=== PATIENT | male | born 1940 | race Hispanic/Latino ===

== ENCOUNTER 2024-06-28 02:45 | Inpatient (IN) | payer OTHER ==
[2024-06-28 03:05] LABS: Actual Bicarbonate (HCO3a) 22.2 mEq/L (22-28); Analyzer IN Cardio ER; Base Excess (BEa) -1.5 mEq/L (-2.0 to +3.0); CO2 Tension 34.1 mmHg (35.0-45.0); Calcium, Ionized (arterial) 1.06 mmol/L (1.12-1.30); Carboxyhemoglobin (COHb) 0.6 gm% (0.0-3.0); Hematocrit-ABG 38 % (42.0-52.0); Hemoglobin (Hb) 12.9 g/dL (14.0-18.0); O2 Tension (PaO2), arterial 159.1 mmHg (> 60.0); Potassium - ABG Lab 3.64 mmol/L (3.70-5.30); pH, Arterial 7.431 (7.35-7.45)
[2024-06-28 03:07] LABS: ALV-art Gradient 511.275 mmHg (0-20); Puncture Site Right Radial artery
[2024-06-28 03:28] LABS: #Basophils Less than 0.03 10x3/uL (0.0-0.2); #Eosinophils Less than 0.03 10x3/uL (0.0-0.7); %Basophils 0.1 % (0.0-1.0); %Lymphocytes 3.6 % (21.0-51.0); %Monocytes 6.2 % (0.0-10.0); %Neutrophils 89.8 % (42.0-75.0); Hematocrit 36.8 % (42.0-52.0); Hemoglobin 12.3 g/dL (14.0-18.0); Mean Corpuscular HGB CONC 33.4 g/dL (32.0-36.0); Mean Corpuscular Hemoglobin 30.5 pg (27.0-31.0); Mean Corpuscular Volume 91.3 fL (78.0-98.0); Mean Platelet Volume 11.4 fL (7.4-10.4); Platelet Count 173 10x3/uL (130-400); RBC Distribution Width 12.4 % (11.5-14.5); Red Blood Cell (RBC) Count 4.03 mill/uL (4.70-6.10)
[2024-06-28 03:59] LABS: Troponin I 1.595 ng/mL (< 0.028)
[2024-06-28 04:00] LABS: ALT (SGPT) 11 U/L (8-55); AST (SGOT) 12 U/L (5-34); Albumin 2.9 g/dL (3.4-4.8); Alkaline Phosphatase 123 U/L (40-110); Anion Gap 15 mmol/L (10-20); BUN (Urea Nitrogen) 46 mg/dL (8.4-25.7); Bilirubin, Total 0.5 mg/dL (0.2-1.2); Calc. Creatinine Clearance 0 mL/min (70-130); Calcium 8.4 mg/dL (7.8-10.44); Carbon Dioxide 20 mmol/L (23-31); Chloride 103 mmol/L (98-107); Estimated GFR 15; Globulin 3.6 g/dL (2.4-3.5); Glucose 173 mg/dL (83-110); Potassium 3.6 mmol/L (3.5-5.1); Protein, Total 6.5 g/dL (5.8-8.1); Sodium 134 mmol/L (136-145)
[2024-06-28] MEDS ORDERED: Furosemide 40 MG (4 mL) VIAL ONE (04:30)
[2024-06-28] MEDS ORDERED: Heparin 5,000 UNITS/ML VIAL ONE (04:31)
[2024-06-28] MEDS ORDERED: Heparin 25,000 units/D5W 500 ML ONE (04:31)
[2024-06-28 04:48] LABS: INR-International Normal Ratio 1.1; Prothrombin Time 14.6 sec (12.0-14.7)
[2024-06-28] MEDS ORDERED: NOREPINEPHRINE 8 MG/250 ML-D5W 250 ML ONE (04:48)
[2024-06-28 04:49] LABS: PTT 33.6 sec (22.9-36.1)
[2024-06-28] MEDS ORDERED: NOREPINEPHRINE 8 MG/250 ML-D5W 250 ML IVPB PRN (05:53)
[2024-06-28] MEDS ORDERED: Glucagon 1 MG/ML KIT IM PRN (06:19)
[2024-06-28] MEDS ORDERED: Dextrose 5% in Water 1,000 ML IV PRN (06:19)
[2024-06-28] MEDS ORDERED: Dextrose 50% Abboject 50 ML SYRINGE SLOW IVP PRN (06:19)
[2024-06-28 06:55] LABS: Troponin I 2.711 ng/mL (< 0.028)
[2024-06-28 08:45] LABS: Hematocrit 35.6 % (42.0-52.0); Hemoglobin 12.1 g/dL (14.0-18.0); Platelet Count 165 10x3/uL (130-400)
[2024-06-28 09:15] LABS: PTT 126.9 sec (22.9-36.1)
[2024-06-28 09:27] LABS: Critical Call Chem Troponin I NUR.LG7; Troponin I 3.311 ng/mL (< 0.028)
[2024-06-28] MEDS ORDERED: Lactated Ringer's 1,000 ML IV SCH (10:00)
[2024-06-28] MEDS: Aspirin 81 mg Enteric Coated Tablet PO SCH ×2 (16:21→16:27)
[2024-06-28] MEDS: Pantoprazole 40 MG VIAL IVP SCH (16:22)
[2024-06-28] MEDS: Insulin Lispro 100 UNIT/ML 10 ML VIAL SC PRN (16:23)
[2024-06-28 16:51] LABS: Critical Call Chem Troponin I ICU.LHt; Troponin I 4.626 ng/mL (< 0.028)
[2024-06-28 17:06] LABS: Bacteria/HPF None Seen HPF (None Seen); Bilirubin Negative (Negative); Blood, Urine 1+ (Negative); CAUTI Indications for Culture Alt mental st,lethar; Clarity Clear (Clear); Glucose, Urine (Dipstick) 150 mg/dL (Negative); Ketone, Urine Negative (Negative); Leukocyte Negative Leu/uL (Negative); Nitrite Negative (Negative); Protein, Urine (Dipstick) 100 mg/dL (Neg-Trace); RBC/HPF 0-3 HPF (0-3); Specific Gravity, Urine 1.007 (1.002-1.036); Squamous Epithelial None Seen HPF (0-3); Urobilinogen Normal mg/dL (Less than 2); WBC/HPF 0-3 HPF (0-3)
[2024-06-28] MEDS: Insulin Regular, Human 100 UNIT/ML 10 ML VIAL SC SCH (17:08)
[2024-06-28 17:13] LABS: Amphetamine Not Detected (NotDetected); Barbiturates Screen Not Detected (NotDetected); Benzodiazepine Screen Not Detected (NotDetected); Cocaine Metabolite Screen Not Detected (NotDetected); Methadone Not Detected (NotDetected); Methamphetamine Not Detected (NotDetected); Opiate Screen Not Detected (NotDetected); Oxycodone Screen Not Detected (NotDetected); Phencyclidine (PCP) Not Detected (NotDetected); THC/Cannabinoid Screen Not Detected (NotDetected); Tricyclic Screen Not Detected (NotDetected)
[2024-06-28 17:17] LABS: Urine Culture Reflex No No
[2024-06-28 17:58] LABS: Creatinine, Urine 83.69 mg/dL (63-166)
[2024-06-28 18:24] LABS: Albumin 2.8 g/dL (3.4-4.8); Anion Gap 16 mmol/L (10-20); BUN (Urea Nitrogen) 49 mg/dL (8.4-25.7); BUN/Creatinine Ratio 12.47; Calc. Creatinine Clearance 16 mL/min (70-130); Calcium 8.3 mg/dL (7.8-10.44); Carbon Dioxide 20 mmol/L (23-31); Chloride 103 mmol/L (98-107); Estimated GFR 14; Glucose 215 mg/dL (83-110); Phosphorus 4.7 mg/dL (2.3-4.7); Potassium 3.6 mmol/L (3.5-5.1); Sodium 135 mmol/L (136-145)
[2024-06-28] MEDS: Heparin 10,000 UNITS/ 10 ML VIAL SLOW IVP SCH (18:52)
[2024-06-28] MEDS: Sodium Bicarbonate Tab 325 MG TAB PO SCH (21:58)
[2024-06-28] MEDS: Lactulose 20 GM (30 mL) UDCUP PO SCH (21:59)
[2024-06-28] MEDS: Terazosin HCl 5 MG CAP PO SCH (21:59)
[2024-06-28] MEDS: Insulin NPH Human Isophane 100 UNITS/ML (10 ML VIAL) SQ SCH (22:14)
[2024-06-28] MEDS: Nitroglycerin 0.4 MG TAB (25 Tab Bottle) ONE (23:53)
[2024-06-29] MEDS ORDERED: Nitroglycerin 2% Ointment 1 INCH/1 GM Packet TOP PRN (00:04)
[2024-06-29 00:09] LABS: Actual Bicarbonate (HCO3a) 21.9 mEq/L (22-28); Base Excess (BEa) -2.9 mEq/L (-2.0 to +3.0); CO2 Tension 38.2 mmHg (35.0-45.0); Calcium, Ionized (arterial) 1.07 mmol/L (1.12-1.30); Carboxyhemoglobin (COHb) 0.7 gm% (0.0-3.0); Hematocrit-ABG 39 % (42.0-52.0); Hemoglobin (Hb) 13.1 g/dL (14.0-18.0); Potassium - ABG Lab 3.99 mmol/L (3.70-5.30); pH, Arterial 7.376 (7.35-7.45)
[2024-06-29 00:11] LABS: O2 Tension (PaO2), arterial 51.4 mmHg (> 60.0); Puncture Site Right Radial artery
[2024-06-29 00:17] LABS: ALT (SGPT) 12 U/L (8-55); AST (SGOT) 18 U/L (5-34); Albumin 2.8 g/dL (3.4-4.8); Alkaline Phosphatase 121 U/L (40-110); Anion Gap 18 mmol/L (10-20); BUN (Urea Nitrogen) 52 mg/dL (8.4-25.7); Bilirubin, Total 0.4 mg/dL (0.2-1.2); Calc. Creatinine Clearance 15 mL/min (70-130); Calcium 8.1 mg/dL (7.8-10.44); Carbon Dioxide 20 mmol/L (23-31); Chloride 101 mmol/L (98-107); Estimated GFR 13; Globulin 3.5 g/dL (2.4-3.5); Glucose 266 mg/dL (83-110); Potassium 4.2 mmol/L (3.5-5.1); Protein, Total 6.3 g/dL (5.8-8.1); Sodium 135 mmol/L (136-145)
[2024-06-29 00:39] LABS: Troponin I 3.783 ng/mL (< 0.028)
[2024-06-29] MEDS: Furosemide 40 MG (4 mL) VIAL SLOW IVP SCH ×2 (01:19→08:59)
[2024-06-29 04:55] LABS: #Basophils 0.03 10x3/uL (0.0-0.2); %Basophils 0.3 % (0.0-1.0); %Eosinophils 0.4 % (0.0-10.0); %Lymphocytes 6.9 % (21.0-51.0); %Monocytes 8.7 % (0.0-10.0); %Neutrophils 83.3 % (42.0-75.0); Hematocrit 35.4 % (42.0-52.0); Hemoglobin 11.8 g/dL (14.0-18.0); Mean Corpuscular HGB CONC 33.3 g/dL (32.0-36.0); Mean Corpuscular Hemoglobin 30.1 pg (27.0-31.0); Mean Corpuscular Volume 90.3 fL (78.0-98.0); Mean Platelet Volume 13.2 fL (7.4-10.4); Platelet Count 174 10x3/uL (130-400); RBC Distribution Width 12.7 % (11.5-14.5); Red Blood Cell (RBC) Count 3.92 mill/uL (4.70-6.10)
[2024-06-29 05:06] LABS: ALT (SGPT) 11 U/L (8-55); AST (SGOT) 20 U/L (5-34); Albumin 2.7 g/dL (3.4-4.8); Alkaline Phosphatase 119 U/L (40-110); Anion Gap 17 mmol/L (10-20); BUN (Urea Nitrogen) 51 mg/dL (8.4-25.7); Bilirubin, Total 0.4 mg/dL (0.2-1.2); Calc. Creatinine Clearance 15 mL/min (70-130); Carbon Dioxide 20 mmol/L (23-31); Cardiac Risk 2.7 (Less than 4.5); Chloride 102 mmol/L (98-107); Cholesterol 130 mg/dl (< 200 Desired); Estimated GFR 13; Globulin 3.5 g/dL (2.4-3.5); Glucose 262 mg/dL (83-110); HDL Cholesterol 49 mg/dL (>60 Neg Risk); LDL Cholesterol, Calculated 65 mg/dL; Potassium 4.1 mmol/L (3.5-5.1); Protein, Total 6.2 g/dL (5.8-8.1); Sodium 135 mmol/L (136-145); Triglycerides 79 mg/dL (Less than 150)
[2024-06-29 06:21] LABS: Troponin I 4.096 ng/mL (< 0.028)
[2024-06-29] MEDS: Calcium Carbonate 600 MG + Vit D TAB PO SCH (08:22)
[2024-06-29] MEDS: Insulin NPH Human Isophane 100 UNITS/ML (10 ML VIAL) SQ SCH ×2 (08:24→21:16)
[2024-06-29] MEDS ORDERED: Insulin NPH Human Isophane 100 UNITS/ML (10 ML VIAL) SQ SCH (09:00)
[2024-06-29 10:52] LABS: Critical Call Chem Troponin I CCU.JAG; Troponin I 4.401 ng/mL (< 0.028)
[2024-06-29] MEDS: Heparin 25,000 units/D5W 500 ML IVPB SCH (16:20)
[2024-06-29] MEDS: Atorvastatin Calcium 40 MG TAB PO SCH (20:50)
[2024-06-30 05:08] LABS: ALT (SGPT) 12 U/L (8-55); AST (SGOT) 13 U/L (5-34); Albumin 2.6 g/dL (3.4-4.8); Alkaline Phosphatase 110 U/L (40-110); Anion Gap 15 mmol/L (10-20); BUN (Urea Nitrogen) 51 mg/dL (8.4-25.7); Bilirubin, Total 0.5 mg/dL (0.2-1.2); Calc. Creatinine Clearance 17 mL/min (70-130); Calcium 8.1 mg/dL (7.8-10.44); Carbon Dioxide 22 mmol/L (23-31); Chloride 107 mmol/L (98-107); Estimated GFR 15; Globulin 3.7 g/dL (2.4-3.5); Glucose 162 mg/dL (83-110); Potassium 3.7 mmol/L (3.5-5.1); Protein, Total 6.3 g/dL (5.8-8.1); Sodium 140 mmol/L (136-145)
[2024-06-30 08:19] LABS: Hematocrit 35.3 % (42.0-52.0); Hemoglobin 11.8 g/dL (14.0-18.0); Platelet Count 184 10x3/uL (130-400)
[2024-06-30] MEDS: Albumin 25% 25 GM (100 mL) BOT IVPB SCH ×2 (09:09→22:29)
[2024-06-30] MEDS: Heparin 5,000 UNITS/ML VIAL SC SCH (10:29)
[2024-06-30 21:09] LABS: Iron 12 ug/dL (65-175); Iron Binding Capacity, Total 194 mcg/dL (261-462)
[2024-06-30] MEDS: Furosemide 40 MG (4 mL) VIAL SLOW IVP SCH (22:29)
[2024-06-30] MEDS: Insulin Lispro 100 UNIT/ML 10 ML VIAL SC PRN (22:38)
[2024-07-01 05:09] LABS: ALT (SGPT) 10 U/L (8-55); AST (SGOT) 9 U/L (5-34); Albumin 3.1 g/dL (3.4-4.8); Alkaline Phosphatase 87 U/L (40-110); Anion Gap 17 mmol/L (10-20); BUN (Urea Nitrogen) 59 mg/dL (8.4-25.7); Bilirubin, Total 0.6 mg/dL (0.2-1.2); Calc. Creatinine Clearance 16 mL/min (70-130); Calcium 8.3 mg/dL (7.8-10.44); Carbon Dioxide 23 mmol/L (23-31); Chloride 104 mmol/L (98-107); Estimated GFR 14; Globulin 3.3 g/dL (2.4-3.5); Glucose 270 mg/dL (83-110); Potassium 4.3 mmol/L (3.5-5.1); Protein, Total 6.4 g/dL (5.8-8.1); Sodium 140 mmol/L (136-145)
[2024-07-01 05:12] VITALS: BMI 33.8
[2024-07-01] MEDS: Sodium Ferric Gluconate 250 MG in Sodium Chloride 0.9% 250 ML 250 ML IVPB SCH (10:14)
[2024-07-01] MEDS: Insulin NPH Human Isophane 100 UNITS/ML (10 ML VIAL) SQ SCH (21:26)
[2024-07-02 05:02] LABS: ALT (SGPT) 12 U/L (8-55); AST (SGOT) 11 U/L (5-34); Albumin 2.6 g/dL (3.4-4.8); Alkaline Phosphatase 92 U/L (40-110); Anion Gap 16 mmol/L (10-20); BUN (Urea Nitrogen) 70 mg/dL (8.4-25.7); Bilirubin, Total 0.4 mg/dL (0.2-1.2); Calc. Creatinine Clearance 15 mL/min (70-130); Calcium 8.3 mg/dL (7.8-10.44); Carbon Dioxide 23 mmol/L (23-31); Chloride 104 mmol/L (98-107); Estimated GFR 13; Globulin 3.5 g/dL (2.4-3.5); Glucose 232 mg/dL (83-110); Potassium 4.2 mmol/L (3.5-5.1); Protein, Total 6.1 g/dL (5.8-8.1); Sodium 139 mmol/L (136-145)
[2024-07-02] MEDS ORDERED: Insulin NPH Human Isophane 100 UNITS/ML (10 ML VIAL) SQ SCH (05:53)
[2024-07-02] MEDS ORDERED: Dapagliflozin Propanediol 10 MG TAB PO SCH (09:45)
[2024-07-02] MEDS: Insulin NPH Human Isophane 100 UNITS/ML (10 ML VIAL) SQ SCH (09:59)
[2024-07-02] MEDS ORDERED: Lorazepam 2 MG/ML VIAL SLOW IVP PRN (10:42)
[2024-07-02] MEDS ORDERED: Morphine 2 MG/ML VIAL SLOW IVP PRN (10:42)
[2024-07-02] MEDS: Furosemide 40 MG (4 mL) VIAL ONE (12:48)
[2024-07-02 13:24] VITALS: BP 111/66; TEMP 98
[2024-07-03] MEDS ORDERED: Furosemide 40 MG (4 mL) VIAL SLOW IVP SCH (09:00)
== END 2024-07-02 22:05 | disposition expired ==
LOC: ERS 02:45 → EEVIPCON 02:45 → CCU 05:53 → PCU 17:36 → CCU 06-29 00:05 → IMCU/EMU 06-29 16:26 → MSONC 07-02 12:38
PROVIDERS: ADMIT Family Medicine; ATTEND Family Medicine
PROC: 02HV33Z Insertion of Infusion Device into Superior Vena Cava, Percutaneous Approach (ICD-10-PCS; principal; 2024-06-28)
PROC: B548ZZA Ultrasonography of Superior Vena Cava, Guidance (ICD-10-PCS; 2024-06-28)
PROC: 02H633Z Insertion of Infusion Device into Right Atrium, Percutaneous Approach (ICD-10-PCS; 2024-06-28)
PROC: B548ZZA Ultrasonography of Superior Vena Cava, Guidance (ICD-10-PCS; 2024-06-28)
PROC: 4A133R1 Monitoring of Arterial Saturation, Peripheral, Percutaneous Approach (ICD-10-PCS; 2024-06-28)
PROC: 3E033XZ Introduction of Vasopressor into Peripheral Vein, Percutaneous Approach (ICD-10-PCS; 2024-06-28)
PROC: 3E043XZ Introduction of Vasopressor into Central Vein, Percutaneous Approach (ICD-10-PCS; 2024-06-28)
PROC: 5A09457 Assistance with Respiratory Ventilation, 24-96 Consecutive Hours, Continuous Positive Airway Pressure (ICD-10-PCS; 2024-06-28)
PROC: 30233J1 Transfusion of Nonautologous Serum Albumin into Peripheral Vein, Percutaneous Approach (ICD-10-PCS; 2024-06-30)
DX: I13.0 Hypertensive heart and chronic kidney disease with heart failure and stage 1 through stage 4 chronic kidney disease, or unspecified chronic kidney disease (principal); I50.43 Acute on chronic combined systolic (congestive) and diastolic (congestive) heart failure; I21.4 Non-ST elevation (NSTEMI) myocardial infarction; J96.01 Acute respiratory failure with hypoxia; N17.9 Acute kidney failure, unspecified; N18.4 Chronic kidney disease, stage 4 (severe); E87.1 Hypo-osmolality and hyponatremia; E87.21 Acute metabolic acidosis; Z66 Do not resuscitate; Z51.5 Encounter for palliative care; E11.22 Type 2 diabetes mellitus with diabetic chronic kidney disease; R57.0 Cardiogenic shock; I45.10 Unspecified right bundle-branch block; Z79.82 Long term (current) use of aspirin; Z79.899 Other long term (current) drug therapy; Z90.49 Acquired absence of other specified parts of digestive tract; Z98.890 Other specified postprocedural states; K21.9 Gastro-esophageal reflux disease without esophagitis; D63.1 Anemia in chronic kidney disease; N40.0 Benign prostatic hyperplasia without lower urinary tract symptoms; E11.21 Type 2 diabetes mellitus with diabetic nephropathy; E11.65 Type 2 diabetes mellitus with hyperglycemia
CPT/HCPCS: 36415; 36416; 36556; 36600; 71045; 76770; 80053; 80061; 80306; 82570; 82728; 82805; 83540; 83550; 83880; 84156; 84300; 84443; 84484; 84540; 85014; 85018; 85025; 85049; 85610; 85730; 87040; 93005; 93306; 94660; 94760; 96365; 96366; 96375; 96376; J1644; J1815; J1940; J2470; J2916; J7050; P9047